=== PATIENT | female | born 2000 | race Caucasian/White ===

== ENCOUNTER 2021-03-21 20:38 | Emergency (ER) | payer BC ==
[~2021-03-21] VITALS: Ht 162.6 cm; Wt 59.1 kg
[2021-03-21 21:21] LABS: COLLECTION METHOD CLEAN CATCH
[2021-03-21 21:30] LABS: MUCOUS Present /lpf; PH 5 (5-8); SQUAMOUS EPITHELIAL 0-2 /hpf; URINE APPEARANCE Clear; URINE BACTERIA None Seen /hpf; URINE BILIRUBIN Negative (NEGATIVE); URINE BLOOD Negative (NEGATIVE); URINE COLOR Yellow; URINE GLUCOSE Negative (NEGATIVE); URINE KETONE Negative (NEGATIVE); URINE LEUKOCYTE ESTERASE Negative (NEGATIVE); URINE NITRATE Negative (NEGATIVE); URINE PROTEIN(semi-quant) Negative (NEGATIVE); URINE RBC 0-2 /hpf; URINE UROBILINOGEN Negative (NEGATIVE)
[2021-03-21 21:52] LABS: BASO % 0.3 % (0.0-2.0); EOS # 0.1 (0.0-0.7); EOS % 0.7 % (0-4.0); GRAN # 5.1 (1.4-6.5); GRAN % 67.6 % (42.2-75.2); HEMATOCRIT 38.5 % (37.0-47.0); HEMOGLOBIN 12.8 g/dl (12.5-16.0); LYMPH # 1.7 (1.2-3.4); LYMPH % 22.4 % (20.0-51.0); MEAN CELL VOLUME 107 fl (80.0-100.0); MEAN CORPUSCULAR HEMOGLOBIN 36 pg (27.0-31.0); MEAN CORPUSCULAR HGB CONC 33 g/dl (33.0-37.0); MONO # 0.7 (0.1-0.6); MONO % 8.9 % (1.7-9.3); PLATELET COUNT 277 K/mm3 (130-400); REDCELL DISTRIBUTION WIDTH-CV 11.1 % (11.5-14.5)
[2021-03-21 22:05] LABS: ALANINE AMINOTRANSFERASE 16 U/L (4-34); ALBUMIN 4.4 gm/dL (3.5-5.0); ALKALINE PHOSPHATASE 39 U/L (50-136); ANION GAP 11 mmol/L (7-16); AST,SGOT 24 U/L (15-37); BILIRUBIN,TOTAL 0.2 mg/dL (0.0-1.0); BLOOD UREA NITROGEN 17 mg/dL (7-17); CALCIUM 9.8 mg/dL (8.4-10.2); CARBON DIOXIDE 25 mmol/L (22-30); CHLORIDE 103 mmol/L (98-107); CREATININE, serum 0.56 (0.52-1.25); GLUCOSE 103 mg/dL (74-106); LIPASE 108 U/L (23-300); SODIUM 139 mmol/L (137-145); TOTAL PROTEIN 7.7 gm/dL (6.4-8.2)
[2021-03-21 22:06] LABS: C-REACTIVE PROTEIN < 0.5 mg/dL (0.0-0.9)
[2021-03-21] MEDS ORDERED: ZOFRAN ODT4 MG PO (22:57)
[2021-03-21 23:15] VITALS: BP 112/78; PULSE 92; TEMP 98.4
== END 2021-03-21 23:15 | disposition home or self-care (01) ==
LOC: COL.ER 20:38
PROVIDERS: Nurse Practitioner Primary Care
DX: R10.32 Left lower quadrant pain (principal); R11.0 Nausea; M79.7 Fibromyalgia; Z79.899 Other long term (current) drug therapy
CPT/HCPCS: J1885; J2405; J7030